=== PATIENT | female | born 1995 | race African-American/Black ===

== ENCOUNTER 2020-01-01 13:42 | Emergency (ER) | payer MEDICAID ==
[~2020-01-01] VITALS: Ht 162.6 cm; Wt 55.0 kg
[2020-01-01] MEDS ORDERED: ONDANSETRON 4MG ODT PO STA (16:20)
[2020-01-01] MEDS ORDERED: HYDROCODONE/ACETAMINOPHEN 5/325MG TABLET PO STA (16:20)
[2020-01-01] MEDS ORDERED: ALPRAZOLAM 0.25 MG TABLET PO ONE (16:30)
[2020-01-01 16:48] LABS: HEMOGLOBIN. 11.8 g/dL (12.0-16.0); MEAN CORPUSCULAR HEMOGLOBIN 26.3 pg (28.0-32.0); MEAN CORPUSCULAR VOLUME 80.2 fL (81.0-99.0); MEAN PLATELET VOLUME 8.8 fl (7.4-10.4); PLATELET 294 x1000/uL (130-400); RED BLOOD CELL COUNT 4.49 mill/uL (4.2-5.4)
[2020-01-01 16:49] LABS: CHLORIDE 108 mEq/L (98-107)
[2020-01-01 17:08] LABS: CLARITY URINE CLOUDY (CLEAR); COLOR URINE YELLOW (YELLOW); KETONES URINE 1+ (NEGATIVE); LEUKOCYTE ESTERASE URINE NEGATIVE (NEGATIVE); NITRITE URINE NEGATIVE (NEGATIVE); OCCULT BLOOD URINE NEGATIVE (NEGATIVE); PH URINE 5.5 (4.5-8.0); PROTEIN URINE 1+ (NEGATIVE); UROBILINOGEN URINE 0.2 E.U./dL (0.2-1.0)
[2020-01-01 17:15] LABS: PLATELET ESTIMATE NORMAL
[2020-01-01] MEDS ORDERED: MORPHINE SULFATE 4 MG/ML CPJ (NOT FOR IM USE) IV STA (18:44)
[2020-01-01] MEDS ORDERED: KETOROLAC 30MG/ML VIAL IV STA (18:44)
[2020-01-01] MEDS ORDERED: ONDANSETRON HCL 4MG/2ML INJ IV STA (18:44)
[2020-01-01] MEDS ORDERED: PIPERACILLIN/TAZ 3.375G PREMIX 50 ML IV ONE (18:45)
[2020-01-01] MEDS ORDERED: SODIUM CHLORIDE 0.9% 1000ML BAG (SEPSIS BOLUS) IV ONE (18:45)
[2020-01-01] MEDS ORDERED: VANCOMYCIN 1 G PREMIX 200 ML IV ONE (18:45)
[2020-01-01 19:32] LABS: HCG SCREEN POSITIVE
[2020-01-01 19:59] LABS: ETHANOL BLOOD < 10 mg/dL
[2020-01-01 20:55] LABS: *AMPHETAMINES SCREEN URINE NEGATIVE (NEGATIVE); *BARBITURATES SCREEN URINE NEGATIVE (NEGATIVE); *BENZODIAZEPINES SCREEN URINE NEGATIVE (NEGATIVE); *COCAINE SCREEN URINE NEGATIVE (NEGATIVE); METHADONE URINE SCREEN NEGATIVE (NEGATIVE); OPIATES URINE SCREEN NEGATIVE (NEGATIVE); PHENCYCLIDINE URINE SCREEN NEGATIVE (NEGATIVE)
[2020-01-01 20:57] LABS: CANNABINOID URINE SCREEN PRESUMTIVE POSITIVE (NEGATIVE)
[2020-01-01 22:22] VITALS: BP 107/52
== END 2020-01-01 22:22 | disposition short-term general hospital (02) ==
LOC: ER 13:51 → CANBEDREQ 01-02 00:52
DX: D72.829 Elevated white blood cell count, unspecified (principal); R10.30 Lower abdominal pain, unspecified; N12 Tubulo-interstitial nephritis, not specified as acute or chronic
CPT/HCPCS: 36415; 71045; 74176; 80053; 80305; 80320; 81003; 81025; 83605; 83690; 84145; 84484; 84703; 85025; 87040; 87086; 96365; 96366; 96368; 96375; 99285; J1885; J2270; J2405; J2543; J3370; J7030; Q0162; G0480

== ENCOUNTER 2021-04-26 12:38 | Emergency (ER) | payer MEDICAID ==
[~2021-04-26] VITALS: Ht 167.6 cm; Wt 71.0 kg
[2021-04-26 13:09] LABS: BASOPHILS % 0.7 % (0.0-2.0); EOSINOPHILS % 0.5 % (0.0-5.0); HEMATOCRIT. 38.7 % (36.0-48.0); HEMOGLOBIN. 13.5 g/dL (12.0-16.0); LYMPHOCYTES % 25.3 % (20.0-50.0); MEAN CORPUSCULAR HEMOGLOBIN 26.4 pg (28.0-32.0); MEAN CORPUSCULAR VOLUME 75.8 fL (81.0-99.0); MEAN PLATELET VOLUME 8.8 fl (7.4-10.4); MONOCYTES % 6.8 % (2.0-8.0); NEUTROPHILS % 66.7 % (40.0-76.0); PLATELET 392 x1000/uL (130-400); RED BLOOD CELL COUNT 5.11 mill/uL (4.2-5.4); RED CELL DISTRIBUTION WIDTH 16.8 % (11.6-14.6)
[2021-04-26 13:14] LABS: CHLORIDE 91 mEq/L (98-107)
[2021-04-26] MEDS: SODIUM CHLORIDE 0.9% 1,000 ML IV ONE (13:17)
[2021-04-26] MEDS: ACETAMINOPHEN 325MG TABLET PO PRN (13:17)
[2021-04-26] MEDS: ONDANSETRON HCL 4MG/2ML INJ IV ONE ×2 (13:17→15:51)
[2021-04-26 13:36] LABS: B-HCG QUANTITATIVE 35724 mIU/mL (<3)
[2021-04-26] MEDS: POTASSIUM CHLORIDE 20MEQ TABLET SR PO ONE (14:12)
[2021-04-26 15:00] LABS: CLARITY URINE CLOUDY (CLEAR); COLOR URINE YELLOW (YELLOW); KETONES URINE 4+ (NEGATIVE); LEUKOCYTE ESTERASE URINE NEGATIVE (NEGATIVE); NITRITE URINE NEGATIVE (NEGATIVE); OCCULT BLOOD URINE NEGATIVE (NEGATIVE); PH URINE 5.5 (4.5-8.0); PROTEIN URINE 1+ (NEGATIVE); SPECIFIC GRAVITY URINE 1.029 (1.005-1.030); UROBILINOGEN URINE 0.2 E.U./dL (0.2-1.0)
[2021-04-26] MEDS: POTASSIUM CHLORIDE INJ 40 MEQ in DEXT 5% WATER 500 ML IV ONE (15:17)
[2021-04-26] MEDS ORDERED: ONDA4TAB5 MT (15:35)
[2021-04-26 20:30] VITALS: BP 112/75
== END 2021-04-26 20:52 | disposition home or self-care (01) ==
LOC: ER 12:38
DX: O21.0 Mild hyperemesis gravidarum (principal); Z3A.14 14 weeks gestation of pregnancy
CPT/HCPCS: 36415; 76801; 76817; 80053; 81003; 81025; 84702; 85025; 93005; 96361; 96365; 96366; 96375; 99285; J2405; J3480; J7030; J7040; J7060; Z7610

== ENCOUNTER 2022-03-02 16:42 | Emergency (ER) | payer MEDICAID ==
[~2022-03-02] VITALS: Ht 170.2 cm; Wt 64.0 kg
[~2022-03-02 16:42] MED LIST: FAMO-135 MT; ONDA4TAB5 MT; TOPUD MT
[2022-03-02 16:44] VITALS: BP 136/78
[2022-03-02] MEDS ORDERED: ALBUTEROL 6.7GM HFA INHALER ORI ONE (17:15)
== END 2022-03-02 18:44 | disposition left against medical advice (07) ==
LOC: ER 16:42
DX: F41.9 Anxiety disorder, unspecified (principal); R07.89 Other chest pain; J45.909 Unspecified asthma, uncomplicated
CPT/HCPCS: 81025; 93005; 94640; 99283